=== PATIENT | male | born 1930 | race Caucasian/White ===

== ENCOUNTER 2017-05-10 13:33 | Emergency (ER) | payer MEDICARE, OTHER ==
[~2017-05-10 13:33] MED LIST: DIGO0.25 PO; METO50 PO; NEOS15T TOP; PERC5TAB12 PO; PLAV75TA OR; PRAV40TA2 OR; PROT40TA PO; ST JTAB PO
[2017-05-10 13:40] VITALS: BP 143/60; PULSE 54; RESP 20; TEMP 97.5; O2SAT 100
== END 2017-05-10 14:30 | disposition left against medical advice (07) ==
LOC: PHED 13:33
DX: Z04.1 Encounter for examination and observation following transport accident (principal)
CPT/HCPCS: 99281

== ENCOUNTER 2017-05-12 08:45 | Emergency (ER) | payer OTHER, MEDICARE ==
[~2017-05-12] VITALS: Ht 177.8 cm; Wt 81.1 kg
[2017-05-12 08:55] VITALS: BP 140/67; PULSE 62; RESP 18; TEMP 98.1; O2SAT 95
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
[2017-05-12] MEDS ORDERED: ASPI81CH CHEW (10:47)
[2017-05-12] MEDS ORDERED: PLAV75TA29 PO (10:47)
[2017-05-12] MEDS ORDERED: MOBI15TA PO (10:47)
[2017-05-12] MEDS ORDERED: LATA0.002 EACH EYE (10:47)
[2017-05-12] MEDS ORDERED: ZOCO20TA PO (10:47)
--- NOTE | 2017-05-12 11:06 | RADRPT ---
EXAM DATE/TIME: 05/12/2017 10:46 [facility] COMPARISON: No previous studies available for comparison. INDICATIONS : Chest pain MEDICAL HISTORY : Atrial Fibrilation SURGICAL HISTORY : CABG. ENCOUNTER: Initial ACUITY: 1 week PAIN SCORE: 4/10 LOCATION: Bilateral chest FINDINGS: Frontal and lateral views of the chest demonstrate a normal-sized cardiac silhouette with calcificati on of the aorta. Patient is post median sternotomy. No effusion, consolidation, or pneumothorax is vi sualized. Bones and soft tissues demonstrate no acute finding. There degenerative changes of the thor acic spine. CONCLUSION: No acute cardiopulmonary abnormality is identified. Tramaine Perrin MD on May 12, 2017 at 11:03 Board Certified Radiologist. This report was verified electronically.
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
== END 2017-05-12 11:36 | disposition home or self-care (01) ==
LOC: PHED 08:45 → PHEFT 11:36
DX: S29.011A Strain of muscle and tendon of front wall of thorax, initial encounter (principal); I48.91 Unspecified atrial fibrillation; V49.49XA Driver injured in collision with other motor vehicles in traffic accident, initial encounter; Y92.410 Unspecified street and highway as the place of occurrence of the external cause; Z79.01 Long term (current) use of anticoagulants
CPT/HCPCS: 71020; 72040; 99284